=== PATIENT | female | born 1970 | race Caucasian/White ===

== ENCOUNTER → 2019-05-13 | Outpatient (CLI) | payer OTHER, SELFPAY ==
[2019-05-20 12:18] LABS: HPV APTIMA, High Risk Negative (Negative)
[2019-05-20 12:23] LABS: HPV Reflexed? YES, CHARGE PATIENT
== END | disposition home or self-care (01) ==
LOC: LABSPEC 10:58
PROVIDERS: Family Provider Family Medicine; PCP Family Medicine; Referring Provider Obstetrics & Gynecology; Visit Provider Obstetrics & Gynecology
DX: Z12.4 Encounter for screening for malignant neoplasm of cervix (principal)
CPT/HCPCS: 87624; 88175; G0145

== ENCOUNTER → 2021-07-25 | Outpatient (CLI) | payer OTHER, SELFPAY ==
[2021-07-31 13:23] LABS: HPV Reflexed? NOT INDICATED
== END | disposition home or self-care (01) ==
LOC: LABSPEC 07-26 09:11
PROVIDERS: PCP Family Medicine; Visit Provider Obstetrics & Gynecology
DX: Z12.4 Encounter for screening for malignant neoplasm of cervix (principal)
CPT/HCPCS: 88175; G0145

== ENCOUNTER → 2024-10-20 | Outpatient (CLI) | payer OTHER, SELFPAY ==
--- NOTE | 2024-10-20 13:34 | BI_ITS ---
PROCEDURE: SCRN MAMM (CAD)W/TAYLOR BILAT REASON FOR EXAM: F, Age 54 y/o, presents for annual screening mammogram. TECHNIQUE: Bilateral screening digital breast tomosynthesis with 2D and 3D images. Computer aided detection. COMPARISON: 10/08/2023, 09/12/2022 FINDINGS: The breasts are extremely dense which lowers the sensitivity of mammography. The mammogram demonstrates that the patient has dense breasts. Supplemental screening with whole breast ultrasound may be considered for further evaluation. There is an asymmetry in the superior left breast at posterior depth visualized on the MLO view. There are no suspicious masses, grouped calcifications or architectural distortions in the right breast. BI/SCRN MAMM (CAD)W/TAYLOR BILAT IMPRESSION: The asymmetry in the superior left breast at posterior depth visualized on the MLO view require further evaluation. Recommend diagnostic mammogram and ultrasound of the left breast. BI-RADS 0: INCOMPLETE - NEED ADDITIONAL IMAGING EVALUATION. Follow-up code: Additional Views obtained/call backs The patient will be notified of the results by letter. Reading Location: [id number]
== END | disposition home or self-care (01) ==
LOC: OPBI 13:33
PROVIDERS: PCP Family Medicine
DX: Z12.31 Encounter for screening mammogram for malignant neoplasm of breast (principal)
CPT/HCPCS: 77063; 77067

== ENCOUNTER → 2024-10-26 | Outpatient (CLI) | payer OTHER, SELFPAY ==
--- NOTE | 2024-10-26 08:57 | US_ITS ---
PROCEDURE: BREAST LIMITED UNILATERAL REASON FOR EXAM: Breast asymmetry. COMPARISON: Comparison is made with prior mammogram dated October 26, 2024. TECHNIQUE: Targeted ultrasound of the upper half of the left breast was obtained. FINDINGS: LEFT: Ultrasound targeted to the upper half at the left breast. 3 cysts are seen in the upper half of the left breast. The largest cyst measures 8 mm x 6 mm x 4 mm. Routine mammographic follow-up recommended. US/Breast Limited Unilateral IMPRESSION: 3 small cysts are seen. Routine mammographic follow-up recommended. BI-RADS 2: BENIGN. RECOMMEND ANNUAL MAMMOGRAPHIC SCREENING. Reading Location: [facility]
--- NOTE | 2024-10-26 08:57 | BI_ITS ---
EXAM: DIAG MAMM W/CAD, UNILAT CLINICAL HISTORY: Abnormal screening mammogram. COMPARISON: Comparison is made with prior mammogram dated October 20, 2024. TECHNIQUE: Compression spot views of the left breast were obtained. Dense fibroglandular tissue. No abnormality is seen. FINDINGS: No abnormality is seen. Targeted sonographic correlation recommended. BI/DIAG MAMM W/CAD, UNILAT IMPRESSION: Targeted ultrasound correlation recommended. BI-RADS: Category 0. [facility]
== END | disposition home or self-care (01) ==
PROVIDERS: PCP Family Medicine
DX: R92.8 Other abnormal and inconclusive findings on diagnostic imaging of breast (principal)
CPT/HCPCS: 76642; 77061; 77065; G0279